=== PATIENT | female | born 1955 | race Caucasian/White ===

== ENCOUNTER 2020-07-27 08:51 | Inpatient (IN) | payer OTHER ==
[2020-07-27] MEDS ORDERED: Acetaminophen 500 MG Tab PO ONE (09:00)
[2020-07-27] MEDS ORDERED: Celecoxib 200 MG Cap PO ONE (09:00)
[2020-07-27] MEDS ORDERED: Scopolamine 1.5 MG Transdermal Patch TRDERM SCH (09:00)
[2020-07-27] MEDS ORDERED: Neostigmine Methylsulfate 1 MG/ML 5 ML Syringe ONE (09:21)
[2020-07-27] MEDS ORDERED: Propofol 200 MG/20 ML SDV ONE (09:21)
[2020-07-27] MEDS ORDERED: Dexamethasone 4 MG/ML SDV ONE (09:21)
[2020-07-27] MEDS ORDERED: Ondansetron 4 MG/2 ML SDV ONE (09:21)
[2020-07-27] MEDS ORDERED: fentaNYL 250 MCG/5 ML SDV ONE ×3 (09:21→11:32)
[2020-07-27] MEDS ORDERED: Rocuronium 50 MG/5 ML Vial ONE (09:21)
[2020-07-27] MEDS ORDERED: Glycopyrrolate 0.2 MG/ML 5 ML MDV ONE (09:21)
[2020-07-27] MEDS ORDERED: Succinylcholine 200 MG/10 ML MDV ONE (09:21)
[2020-07-27] MEDS ORDERED: Dextrose 5%-Lactated Ringers 1,000 ML IV SCH (09:30)
[2020-07-27] MEDS ORDERED: Albuterol/Ipratropium 3.0-0.5 MG/3 ML Neb Soln NEB ONE (10:30)
[2020-07-27] MEDS ORDERED: Magnesium Sulfate 4.5 GM in Sodium Chloride 0.9% 250 ML IV ONE (11:00)
[2020-07-27] MEDS ORDERED: Ketamine 500 MG/5 ML MDV IV SCH (11:00)
[2020-07-27] MEDS ORDERED: cefOXitin 2 GM in Sodium Chloride 0.9% 50 ML IV ONE (11:00)
[2020-07-27] MEDS ORDERED: Ketamine 50 MG in Sodium Chloride 0.9% 49.5 ML IV SCH (11:00)
[2020-07-27] MEDS ORDERED: Magnesium Sulfate 3 GM in Sodium Chloride 0.9% 100 ML IV SCH (11:00)
[2020-07-27] MEDS: cefOXitin 2 GM Vial ONE ×2 (11:14→12:23)
[2020-07-27] MEDS ORDERED: Labetalol 20 MG/4 ML Syringe ONE (11:36)
[2020-07-27] MEDS ORDERED: Cyclobenzaprine 10 MG Tab PO PRN (14:06)
[2020-07-27] MEDS: Albuterol/Ipratropium 3.0-0.5 MG/3 ML Neb Soln INH SCH ×2 (14:42→21:34)
[2020-07-27] MEDS ORDERED: diphenhydrAMINE 50 MG/ML SDV IVPUSH PRN (15:00)
[2020-07-27] MEDS ORDERED: Labetalol 20 MG/4 ML Syringe IVPUSH PRN (15:00)
[2020-07-27] MEDS ORDERED: HYDROmorphone 0.5 MG/0.5 ML Syringe IVPUSH PRN (15:00)
[2020-07-27] MEDS ORDERED: hydrOXYzine HCL 100 MG/2 ML SDV IM PRN (15:00)
[2020-07-27] MEDS ORDERED: Albuterol/Ipratropium 3.0-0.5 MG/3 ML Neb Soln INH PRN (15:00)
[2020-07-27] MEDS ORDERED: HYDROmorphone 1 MG/ML Syringe IV PRN (15:00)
[2020-07-27] MEDS ORDERED: Metoclopramide 10 MG/2 ML SDV IVPUSH PRN (15:00)
[2020-07-27] MEDS ORDERED: Ondansetron 4 MG/2 ML SDV IVPUSH PRN (15:00)
[2020-07-27] MEDS ORDERED: Calcium Gluconate 10% 1 GM/10 ML SDV IVPUSH PRN (15:00)
[2020-07-27] MEDS ORDERED: oxyCODONE 5 MG Tab PO PRN (15:00)
[2020-07-27] MEDS ORDERED: Acetaminophen 500 MG Tab PO SCH (16:00)
[2020-07-27] MEDS: MVI, Adult with Vitamin K 10 ML, Thiamine 200 MG, Zinc/Copper/Manganese/Selenium 1 ML i... IV SCH ×4 (16:23)
[2020-07-27] MEDS: cefOXitin 2 GM in Sodium Chloride 0.9% 50 ML IV SCH ×2 (16:24→21:34)
[2020-07-27] MEDS: Pantoprazole 40 MG Vial IVPUSH SCH (16:25)
[2020-07-27] MEDS ORDERED: Benzocaine/Cetylpyridinium/Menthol Lozenge MUCMEM PRN (16:43)
[2020-07-27] MEDS: Heparin Sodium 5,000 Units/ML Vial SUBCUT SCH (19:28)
[2020-07-27] MEDS: Citalopram 20 MG Tab PO SCH (21:37)
[2020-07-27] MEDS: Pramipexole 0.5 MG Tab PO PRN (21:49)
[2020-07-27] MEDS: Dextrose 5%-Lactated Ringers 1,000 ML IV SCH (22:31)
[2020-07-27] MEDS: Acetaminophen Soln 650 MG/20.3 ML UD Cup PO SCH (23:09)
[2020-07-28] MEDS ORDERED: Iopamidol 612 MG/ML 50 ML SDV PO PRN (03:49)
[2020-07-28] MEDS: Dextrose 5%-Lactated Ringers 1,000 ML IV SCH (03:56)
[2020-07-28] MEDS: cefOXitin 2 GM in Sodium Chloride 0.9% 50 ML IV SCH (03:56)
--- NOTE | 2020-07-28 07:00 | CRLCR ---
INDICATION: : Status post bariatric surgery. Evaluate for leak. COMPARISON: None available. FINDINGS: Four images of the abdomen are obtained in the upright position while swallowing 50 cc of Isovue 300. The initial manager commodities image shows a surgical drain located in the left upper quadrant. Small ring markers are seen in the area of the GE junction. With the ingestion of oral contrast, the gastric remnant is seen to be widely patent, with free flow of contrast through the gastrojejunostomy into the nondilated jejunum. There is no sign of extravasation of contrast into the peritoneal cavity from the anastomoses of the gastric remnant. The jejunum is nondilated. IMPRESSION: Widely patent gastrojejunostomy and other small bowel anastomoses. Little retention of contrast material in the gastric remnant. No sign of any extravasation of contrast into the peritoneal cavity. Dictated by Levon Stahl MD @ Jul 28 2020 6:55AM Signed by Dr. Levon Stahl @ Jul 28 2020 6:59AM
[2020-07-28] MEDS: Levothyroxine 25 MCG Tab PO SCH (07:03)
[2020-07-28] MEDS: Heparin Sodium 5,000 Units/ML Vial SUBCUT SCH ×2 (07:07→19:39)
[2020-07-28] MEDS: Acetaminophen Soln 650 MG/20.3 ML UD Cup PO SCH (07:08)
[2020-07-28] MEDS: Albuterol/Ipratropium 3.0-0.5 MG/3 ML Neb Soln INH SCH ×4 (07:09→20:51)
[2020-07-28] MEDS ORDERED: Ondansetron 4 MG Tab.DIS PO PRN (07:24)
[2020-07-28] MEDS ORDERED: hydrOXYzine HCl 25 MG Tab PO PRN (07:25)
[2020-07-28] MEDS ORDERED: Dextrose 5%-Lactated Ringers 1,000 ML IV SCH (07:30)
[2020-07-28] MEDS: Acetaminophen 500 MG Tab PO PRN ×2 (07:59→15:16)
[2020-07-28] MEDS: Losartan 25 MG Tab PO SCH (08:00)
[2020-07-28] MEDS: Celecoxib 200 MG Cap PO SCH ×2 (08:00→20:51)
[2020-07-28] MEDS ORDERED: Acetaminophen Soln 650 MG/20.3 ML UD Cup PO SCH (08:00)
[2020-07-28] MEDS: Aspirin 81 MG Tab.EC PO SCH (08:01)
[2020-07-28] MEDS: Estradiol 0.5 MG Tab PO SCH (08:01)
[2020-07-28] MEDS: SCOPOLAMINE PATCH CHECK TOP SCH (08:01)
--- NOTE | 2020-07-28 08:39 | PN ---
DATE OF SERVICE: 07/28/2020 SUBJECTIVE: Jennifer is postop day 1. Upper GI was normal. She has been up ambulating, using her incentive spirometer. Vital signs have been stable. Pain has been controlled with energy protocol. Oral intake was 365. Urine output was 1650. She reports a sore throat and points to her neck when she swallows. REVIEW OF SYSTEMS: Remainder of review of systems negative for any pertinent positives and negatives. OBJECTIVE: GENERAL: Jennifer Morgan is a pleasant 65-year-old female. She is alert and oriented. VITAL SIGNS: TPR 96.5, 78, 18, blood pressure 124/62. HEENT: Negative. NECK: Supple. HEART: Regular rate and rhythm. LUNGS: Clear. ABDOMEN: Dressings dry and intact. Abdominal binder is on. JANA drain is draining a light pink drainage. EXTREMITIES: Without peripheral edema. ASSESSMENT: Laparoscopic sleeve gastrectomy. 1. Liver biopsy. 2. Repair of paraesophageal hernia with mesh. 3. Excision of mediastinal lipoma. POSTOPERATIVE DIAGNOSES: 1. Morbid obesity. 2. Hepatomegaly. 3. Paraesophageal hernia. 4. Mediastinal lipoma. Date of procedure 07/27/2020. Surgeon: Omar Wilson MD. PLAN: 1. Decrease IV to 100 mL/hr. 2. Step 2 gastric bypass diet with no cereal. 3. Zofran ODT 4 mg q.4 hours p.r.n. nausea. 4. May shower. 5. Three med cups per hour and record at bedside. 6. Cepacol throat lozenges, use as directed p.r.n. sore throat. 7. Continue use of incentive spirometer. 8. Continue ambulation. 9. We will evaluate p.r.n. or in a.m. Clara Simpson PA-C /[id number]
[2020-07-28] MEDS ORDERED: Citalopram 20 MG Tab PO SCH (09:00)
[2020-07-28] MEDS: Pantoprazole 40 MG Vial IVPUSH SCH (15:15)
[2020-07-28] MEDS: MVI, Adult with Vitamin K 10 ML, Thiamine 200 MG, Zinc/Copper/Manganese/Selenium 1 ML i... IV SCH ×4 (15:15)
[2020-07-28] MEDS: Acetaminophen 500 MG Tab PO SCH ×2 (17:39→23:53)
[2020-07-28] MEDS: Pramipexole 0.5 MG Tab PO PRN (17:45)
[2020-07-28] MEDS: Citalopram 20 MG Tab PO SCH (20:51)
[2020-07-29] MEDS: Albuterol/Ipratropium 3.0-0.5 MG/3 ML Neb Soln INH SCH (07:02)
[2020-07-29] MEDS: Levothyroxine 25 MCG Tab PO SCH (07:28)
[2020-07-29] MEDS ORDERED: Azithromycin 200 MG/5 ML Susp 30 ML Bottle PO SCH (09:00)
[2020-07-29] MEDS ORDERED: Cyanocobalamin (Vitamin B12) 1,000 MCG/ML SDV IM ONE (09:00)
[2020-07-29] MEDS ORDERED: Loratadine 10 MG Tab.DIS PO ONE (09:00)
[2020-07-29] MEDS: Estradiol 0.5 MG Tab PO SCH (09:29)
[2020-07-29] MEDS: Celecoxib 200 MG Cap PO SCH (09:30)
[2020-07-29] MEDS: Aspirin 81 MG Tab.EC PO SCH (09:30)
[2020-07-29] MEDS: Heparin Sodium 5,000 Units/ML Vial SUBCUT SCH (09:37)
[2020-07-29] MEDS: SCOPOLAMINE PATCH CHECK TOP SCH (10:08)
[2020-07-29] MEDS: Acetaminophen 500 MG Tab PO SCH (10:09)
[2020-07-29] MEDS: Losartan 25 MG Tab PO SCH (10:22)
--- NOTE | 2020-07-30 10:10 | CR ---
CHEST: 2 view CLINICAL HISTORY:New cough COMPARISON:None FINDINGS: The heart size, pulmonary vascularity and hilar structures are normal. No infiltrate or pneumothorax is seen. There appears to be minimal bibasal effusions. There is a surgical drain in the left upper quadrant. IMPRESSION: No acute cardiopulmonary process.
--- NOTE | 2020-07-30 10:14 | DISCH ---
ADMISSION DIAGNOSES: 1. Morbid obesity. 2. Body mass index 37.4. DISCHARGE DIAGNOSES: 1. Laparoscopic sleeve gastrectomy. 2. Liver biopsy. 3. Repair of a paraesophageal diaphragmatic hernia. 4. Excision of a mediastinal lipoma. POSTOPERATIVE DIAGNOSES: 1. Morbid obesity. 2. Hepatomegaly. 3. Paraesophageal hernia. 4. Mediastinal lipoma. DATE OF PROCEDURE: 07/27/2020. SURGEON: Omar Wilson MD HISTORY: Jennifer Morgan is a 65-year-old female with a longstanding history of morbid obesity and increasing comorbidities. After preoperative evaluation and discussion of possible risks and possible complications, she wished to proceed with surgical procedure. HOSPITAL COURSE: Jennifer had her surgery on 07/27/2020. She had no operative complications. On postoperative day 1, she was started on a step 2 gastric bypass diet with no cereal as her upper GI was normal. Her IV was decreased. She was up ambulating. On postoperative day 3, she was able to be discharged to home. Jennifer did develop, she states, bronchitis. She has a cough and quite a bit in the form of posterior pharyngeal drainage. Cough is nonproductive but sounds deep and loose. Afebrile. She did have COVID, June 24. Prior to discharge, a chest x-ray PA and lateral was obtained and a CBC. JANA drain was discontinued. Jennifer was able to be discharged to home. CONDITION: Stable. FOLLOWUP APPOINTMENTS: With Clara Simpson PA-C, 08/07/2020 at 12 p.m. HOME MEDICATIONS: 1. She is to start the Celebrex. She picked that up before she came to the hospital. She is to take 200 mg b.i.d. for 2 weeks. 2. Loratadine, Claritin RediTabs, 10 mg once daily p.r.n. cough or congestion #30. 3. Zithromax 200 mg/5 mL. She is to take 500 mg p.o. q.24 hours x3 days. 4. Zofran ODT 4 mg every 4 hours sublingual p.r.n. nausea #30. DIET: Step 2 gastric bypass diet with no cereal until 08/28/2020. ACTIVITY: No lifting over 10 pounds for 2 weeks. Walk at least 6 times daily inside your home. DRIVING: Do not drive for 1 week. SHOWER/BATHING: May shower. DISCHARGE INSTRUCTIONS: Keep operative site clean and dry. Wear abdominal binder for 2 weeks and then as tolerated. Notify provider if any fever, increased pain, swelling, redness, drainage, nausea, or vomiting. OTHER INSTRUCTIONS: Use incentive spirometer 10 times every hour while awake for 1 week and if bronchitis symptoms increase. FOLLOWUP: With PCP. /[id number]
--- NOTE | 2020-08-06 13:09 | OR ---
DATE OF PROCEDURE: 07/27/2020 SURGEON: Omar Wilson MD PREOPERATIVE DIAGNOSIS: Morbid obesity. POSTOPERATIVE DIAGNOSES: 1. Morbid obesity. 2. Marked hepatomegaly. 3. Paraesophageal diaphragmatic hernia. 4. Mediastinal lipoma. OPERATIVE PROCEDURE: Diagnostic laparoscopy with: 1. Laparoscopic sleeve gastrectomy (31519). 2. Brandon-Cut needle liver biopsy (90841). 3. Repair of paraesophageal diaphragmatic hernia with mesh (67707). 4. Excision of mediastinal lipoma (54490). ANESTHESIA: General. CONTACT LENS LATHE OPERATOR: Clara Simpson PA-C INDICATIONS FOR PROCEDURE: This is a 65-year-old female presenting with longstanding morbid obesity and increasingly significant comorbidities. After preoperative evaluation and discussion, she wished to proceed with a sleeve gastrectomy. Potential risks of the procedure including bleeding, infection, leaks from the staple lines as well as possibility of cardiopulmonary, septic, or hemorrhagic complications leading to were discussed, and the patient wishes to proceed. DETAILS OF PROCEDURE: The patient was taken to the operating room. After general endotracheal anesthesia was induced, was placed in a lithotomy position, and the abdomen prepped and draped. At 15 cm inferior and 5 cm left of the xiphoid process, a transverse incision was made and the peritoneal cavity entered under direct vision with an Optiview trocar inflated to 15 mmHg pressure with CO2. The laparoscope was then reinserted. No underlying trocar insertion site injuries were seen. Following this, bilateral transversus abdominis plane blocks were placed and 5 additional trocars were placed across the upper and mid abdomen. The patient was noted to have a marked hepatomegaly with the liver grossly being fatty infiltrated. Brandon-Cut needle biopsies were obtained from the left lobe of the liver. Minimal bleeding from the biopsy sites was controlled with electrocautery. The liver was then retracted anteriorly. The patient was noted to have a moderate-sized paraesophageal diaphragmatic hernia containing some perigastric fat, gastric fundus, and some omental tissue within it. This was reduced and the peritoneum incised and reflected downward. The esophagus was then freed up on each side from the crura and retroesophageal window created. During the course of the dissection, a mediastinal lipoma was encountered and excised to facilitate more adequate repair of the diaphragmatic hernia. The crural repair was then initially placed posteriorly with 0 Ethibond sutures reinforced with PTFE pledgets. Some durable mesh was then placed posteriorly to the esophagus over the crural repair after being cut in a small horseshoe-type configuration and affixed on each side into the crura with some titanium tacking screws. At this point, the omentum was divided away from the greater curvature of the stomach beginning 2 cm proximal to the pylorus. This extended proximally up to and through the short gastric vessels including the highest and posterior short gastric vessels. The fundus was dissected free from the left alex to avoid leaving a cul-de-sac of stomach in that area. After mapping out the initial staple line with care taken to avoid overtightening of the incisura angularis area, the first 2 firings were with the ANDREW black loads. At this point, a 32-Kazakh suction tube was then placed orally and positioned across the lesser curvature with the aid of the public health veterinarian and then placed on suction. Remainder of the sleeve gastrectomy was accomplished along the edge of that tube with a combination of reinforced black and reinforced purple ANDREW loads. The stomach was then displaced off the side and the tube taken off suction. The sleeve gastrectomy staple line was then reinforced with fibrin sealant focusing particularly on the area of the esophagogastric junction. The omentum was brought up through that area as well and sutured in position with a 3-0 Vicryl stitch to keep the omentum in the proper position at that location. A leak test was accomplished with injection of 120 mL of air into the stomach while submerged with an antibiotic-containing saline solution. No leaks were identified. The gastric specimen was then retrieved through the left lateral trocar site and a single Adrian-Strickland drain was then placed adjacent to the esophagogastric junction and from there up into the splenic fossa. The trocars were then removed, the peritoneal cavity deflated. The incisions were closed with 4-0 Vicryl skin stitch and the drain affixed with 4-0 Vicryl stitch as well and the patient taken to the recovery room in satisfactory condition. Physician chemist assistant, Clara Simpson, played an essential role in assisting in this case, helping to position the patient, retract structures as needed as well as suturing and cutting sutures when indicated. Her presence improved patient safety and decreased the operative time. Omar Wilson MD /[id number]
== END 2020-07-29 10:30 | disposition home or self-care (01) | DRG 621 ==
LOC: JP.SDS 08:51 → JP.SDSSCHI 08:51 → EDSTATUS 12:15 → JP.MS 12:40
PROVIDERS: ADMIT Surgery; ATTEND Surgery
PROC: 0DB64Z3 Excision of Stomach, Percutaneous Endoscopic Approach, Vertical (ICD-10-PCS; principal; 2020-07-27)
PROC: 0FB24ZX Excision of Left Lobe Liver, Percutaneous Endoscopic Approach, Diagnostic (ICD-10-PCS; 2020-07-27)
PROC: 0BQT4ZZ Repair Diaphragm, Percutaneous Endoscopic Approach (ICD-10-PCS; 2020-07-27)
PROC: 0JB63ZZ Excision of Chest Subcutaneous Tissue and Fascia, Percutaneous Approach (ICD-10-PCS; 2020-07-27)
DX: E66.01 Morbid (severe) obesity due to excess calories (principal); Z68.37 Body mass index [BMI] 37.0-37.9, adult; R16.0 Hepatomegaly, not elsewhere classified; K44.9 Diaphragmatic hernia without obstruction or gangrene; D17.4 Benign lipomatous neoplasm of intrathoracic organs; Z79.890 Hormone replacement therapy; Z79.899 Other long term (current) drug therapy; Z88.1 Allergy status to other antibiotic agents; Z88.2 Allergy status to sulfonamides; G47.33 Obstructive sleep apnea (adult) (pediatric); I10 Essential (primary) hypertension; H02.889 Meibomian gland dysfunction of unspecified eye, unspecified eyelid; Z90.710 Acquired absence of both cervix and uterus; Z79.82 Long term (current) use of aspirin
CPT/HCPCS: 36415; 71046; 71046-26; 74240; 82962; 85025; 86850; 86900; 86901; 88304; 88307; 88313; 94640; 94762; A9270-GY; C1781; C9113; J0171; J0330; J0694; J1100; J1644; J2405; J2704; J2710; J2795; J3010; J3411; J3420; J3475; J3490; J7030; J7050; J7121; J7620-GY; Q9967